=== PATIENT | male | born 1965 | race Caucasian/White ===

== ENCOUNTER 2025-03-15 22:04 | Emergency (ER) | payer OTHER ==
[~2025-03-15] VITALS: Ht 182.8 cm; Wt 70.8 kg
[2025-03-15] MEDS ORDERED: Acetaminophen/Hydrocodone ES 7.5/325 tablet PO ONE (23:50)
[2025-03-15] MEDS ORDERED: Ondansetron Hydrochloride 4 MG TAB SL ONE (23:50)
[2025-03-16] MEDS ORDERED: Bacitracin Zinc 14 GM TUBE T ONE (00:05)
== END 2025-03-16 00:13 | disposition home or self-care (01) ==
LOC: ED 22:04
DX: S02.40EA Zygomatic fracture, right side, initial encounter for closed fracture (principal); S01.01XA Laceration without foreign body of scalp, initial encounter; S20.211A Contusion of right front wall of thorax, initial encounter; V89.2XXA Person injured in unspecified motor-vehicle accident, traffic, initial encounter; Y93.89 Activity, other specified; Y92.488 Other paved roadways as the place of occurrence of the external cause; Y99.8 Other external cause status